=== PATIENT | male | born 1950 | race Caucasian/White ===

== ENCOUNTER 2025-02-19 01:28 | Inpatient (IN) | payer MEDICARE, MEDICAID ==
[2025-02-19 03:09] LABS: #Basophils 0.04 10x3/uL (0.0-0.2); #Eosinophils 0.19 10x3/uL (0.0-0.7); #Monocytes 0.55 10x3/uL (0.11-0.59); #Neutrophils 3.92 10x3/uL (1.40-6.50); %Basophils 0.6 % (0.0-1.0); %Eosinophils 2.8 % (0.0-10.0); %Lymphocytes 29.2 % (21.0-51.0); %Monocytes 8.2 % (0.0-10.0); %Neutrophils 58.5 % (42.0-75.0); Hematocrit 38.2 % (42.0-52.0); Hemoglobin 13.0 g/dL (14.0-18.0); Mean Corpuscular Hemoglobin 31.4 pg (27.0-31.0); Mean Corpuscular Volume 92.3 fL (78.0-98.0); Platelet Count 188 10x3/uL (130-400); Red Blood Cell (RBC) Count 4.14 mill/uL (4.70-6.10); White Blood Cell (WBC) Count 6.71 10x3/uL (4.8-10.8)
[2025-02-19 03:16] LABS: Bacteria/HPF 3+ HPF (None Seen); CAUTI Indications for Culture Pelvic or flank pain; Glucose, Urine (Dipstick) Normal (Negative); Leukocyte 500 Leu/uL (Negative); Protein, Urine (Dipstick) 200 mg/dL (Neg-Trace); RBC/HPF Greater than 50 HPF (0-3); Specific Gravity, Urine 1.022 (1.002-1.036); WBC/HPF Greater than 50 HPF (0-3)
[2025-02-19 03:18] LABS: Urine Culture Reflex Yes Yes
[2025-02-19 03:22] LABS: ALT (SGPT) 8 U/L (Less than 45); AST (SGOT) 16 U/L (11-34); Albumin 3.3 g/dL (3.1-4.5); Alkaline Phosphatase 57 U/L (40-110); Anion Gap 12 mmol/L (10-20); BUN (Urea Nitrogen) 23 mg/dL (8.4-25.7); Bilirubin, Total 0.7 mg/dL (0.3-1.2); Calc. Creatinine Clearance 0 mL/min (70-130); Calcium 8.6 mg/dL (7.8-10.44); Carbon Dioxide 27 mmol/L (23-31); Chloride 108 mmol/L (98-107); Globulin 3.3 g/dL (2.4-3.5); Glucose 92 mg/dL (83-110); Potassium 3.8 mmol/L (3.5-5.1); Sodium 143 mmol/L (136-145)
[2025-02-19] MEDS ORDERED: Cefepime 2 GM VIAL ONE (04:54)
[2025-02-19] MEDS ORDERED: Ondansetron PF 4 MG/2 ML Vial IVP PRN (05:50)
[2025-02-19] MEDS ORDERED: Calcium Carbonate 500 MG ChewTAB PO PRN (05:50)
[2025-02-19] MEDS ORDERED: Electrolyte Replacement Protocol 1 EACH FS PRN (06:00)
[2025-02-19] MEDS: Vancomycin 1.5 GM / NS 500ML VIAL-2-BAG IVPB SCH (07:11)
[2025-02-19] MEDS: cefTRIAXone\\ROCEPHIN 1 GM in Sodium Chloride 0.9% 100 ML IVPB SCH ×2 (09:21→14:19)
[2025-02-19] MEDS ORDERED: Bisacodyl 10 MG SUPP PR PRN (13:40)
[2025-02-19] MEDS ORDERED: Guaifenesin DM 100-10/5 ML UDCUP PO PRN (13:52)
[2025-02-19] MEDS ORDERED: Albuterol 2.5 MG (3 mL) NEB NEB PRN (13:52)
[2025-02-19] MEDS ORDERED: Iopamidol 370 76% 100 ML VIAL ONE (14:12)
[2025-02-19] MEDS: Acetaminophen 325 MG TAB PO PRN (14:30)
[2025-02-19] MEDS: Vancomycin HCl 750 MG in Sodium Chloride 0.9% 250 ML 250 ML IVPB SCH (18:18)
[2025-02-19] MEDS: Divalproex Sodium 250 MG ER.TAB PO SCH (20:25)
[2025-02-19] MEDS: Senokot S 8.6-50 MG TAB PO SCH (20:25)
[2025-02-20] MEDS: Vancomycin HCl 750 MG in Sodium Chloride 0.9% 250 ML 250 ML IVPB SCH (05:03)
[2025-02-20 05:43] LABS: Vancomycin, Random 9.4 ug/mL (See Comment)
[2025-02-20 05:48] LABS: ALT (SGPT) Less than 7 U/L (Less than 45); AST (SGOT) 14 U/L (11-34); Albumin 3.1 g/dL (3.1-4.5); Alkaline Phosphatase 55 U/L (40-110); Anion Gap 11 mmol/L (10-20); BUN (Urea Nitrogen) 14 mg/dL (8.4-25.7); Bilirubin, Total 0.5 mg/dL (0.3-1.2); Calc. Creatinine Clearance 92 mL/min (70-130); Calcium 8.4 mg/dL (7.8-10.44); Carbon Dioxide 25 mmol/L (23-31); Chloride 108 mmol/L (98-107); Globulin 3.0 g/dL (2.4-3.5); Glucose 93 mg/dL (83-110); Potassium 3.9 mmol/L (3.5-5.1); Sodium 140 mmol/L (136-145)
[2025-02-20] MEDS: Enoxaparin 40 MG (0.4 mL) SYRINGE SC SCH (10:05)
[2025-02-20] MEDS: cefTRIAXone\\ROCEPHIN 2 GM in Sodium Chloride 0.9% 100 ML IVPB SCH (10:05)
[2025-02-20] MEDS: Cholecalciferol 1,000 UNITS (25 MCG) TAB PO SCH (10:06)
[2025-02-20] MEDS: Multivitamin W/ Minerals 1 TAB PO SCH (10:06)
[2025-02-20] MEDS: Sertraline 100 MG TAB PO SCH (10:06)
[2025-02-20] MEDS: Mirabegron ER 25 MG ER.TAB PO SCH (10:07)
[2025-02-20] MEDS: Vancomycin 1 GM in Premix 1 BAG IVPB SCH (13:39)
[2025-02-21 12:01] VITALS: BP 160/84; TEMP 97.6
== END 2025-02-21 15:01 | disposition home or self-care (01) | DRG 699 ==
LOC: ERS 01:28 → SURG A 05:08
PROVIDERS: ADMIT Student in an Organized Health Care Education/Training Program; ATTEND Internal Medicine
DX: T83.510A Infection and inflammatory reaction due to cystostomy catheter, initial encounter (principal); N30.00 Acute cystitis without hematuria; I69.351 Hemiplegia and hemiparesis following cerebral infarction affecting right dominant side; J44.9 Chronic obstructive pulmonary disease, unspecified; F32.9 Major depressive disorder, single episode, unspecified; I10 Essential (primary) hypertension; Z91.048 Other nonmedicinal substance allergy status; Z79.82 Long term (current) use of aspirin; Z79.899 Other long term (current) drug therapy; K52.9 Noninfective gastroenteritis and colitis, unspecified; N41.9 Inflammatory disease of prostate, unspecified; N40.0 Benign prostatic hyperplasia without lower urinary tract symptoms; F41.9 Anxiety disorder, unspecified; Z98.890 Other specified postprocedural states; G20.A1 Parkinson's disease without dyskinesia, without mention of fluctuations; F02.80 Dementia in other diseases classified elsewhere, unspecified severity, without behavioral disturbance, psychotic disturbance, mood disturbance, and anxiety; N31.9 Neuromuscular dysfunction of bladder, unspecified; K20.90 Esophagitis, unspecified without bleeding; N28.1 Cyst of kidney, acquired
CPT/HCPCS: 36415; 74177; 76705; 80053; 80202; 81001; 85025; 87077; 87086; 87186; 96365; 96367; J0692; J0696; J1650; J3373; J7030; J7050; Q9967